=== PATIENT | female | born 1945 | race Caucasian/White ===

== ENCOUNTER → 2017-07-05 | Outpatient (CLI) | payer BC, MEDICARE ==
[~2017-07-05] MED LIST: CONTRAST GIVEN MC PRN; IOHEXOL 240 MG/ML 50ML VIAL. PO ONE; IOHEXOL 300 MG/ML 100ML VIAL. IV ONE
[2017-07-05 10:20] LABS: CREATININE 0.8 mg/dL (0.6-1.0); GFR 70.7
--- NOTE | 2017-07-05 11:45 | RAD ---
Indication: Mid abdominal pain for 2 to 3 days. Technique: Axial images and coronal and sagittal reformatted images are provided. Oral contrast and 75 mL of Omnipaque 300 was administered without complication. No comparison is available. One or more of the following individualized dose reduction techniques were utilized for this examination: 1. Automated exposure control 2. Adjustment of the mA and/or kV according to patient size 3. Use of iterative reconstruction technique Findings: There is minimal atelectasis in the lung bases. There is no pleural effusion. The heart is not enlarged. Coronary artery calcifications are noted. There is fatty infiltration of the liver. Right hepatic lobe measures over 20 cm craniocaudal. Gallbladder is unremarkable. Spleen is not enlarged. Pancreas and adrenals are unremarkable. Kidneys are symmetrically perfused. Extrarenal pelvises are noted. Neither ureter is dilated. There is no renal calculus. Aorta is normal caliber with minimal atheromatous disease. There is no dilated small bowel loop or air-fluid level. There is no mural thickening. There is a normal appendix. Colon is grossly unremarkable. Bladder is unremarkable. There is no adnexal mass. There is no free pelvic fluid. There are mild degenerative changes in the spine. Impression: 1. Fatty infiltration of an enlarged liver. 2. No acute abdominal findings.
== END | disposition home or self-care (01) ==
LOC: CT 09:41
PROVIDERS: ATTEND Nurse Practitioner Family
DX: K76.0 Fatty (change of) liver, not elsewhere classified (principal)
CPT/HCPCS: 36415; 74177; 82565; 84520; Q9966; Q9967

== ENCOUNTER → 2018-01-27 | Outpatient (CLI) | payer BC, MEDICARE | END | disposition home or self-care (01) | LOC: KCIC US 14:52 | DX: E03.9 Hypothyroidism, unspecified (principal) | CPT/HCPCS: 76536 ==